=== PATIENT | female | born 1985 | race Caucasian/White ===

== ENCOUNTER 2018-04-23 17:36 | Emergency (ER) | payer OTHER ==
[~2018-04-23] VITALS: Ht 154.9 cm; Wt 60.4 kg
[2018-04-23 18:12] VITALS: BP 121/89
--- NOTE | 2018-04-23 18:22 | NUR ---
back out to [facility] after urine sample provided
--- NOTE | 2018-04-23 19:30 | NUR ---
PT CAME IN TO ER WITH C/O WANTING TO COMFIRM POSITIVE . PT TOOK SOME TESTS AND STATED THEY CAME OUT POSITIVE. PT HAD SOME N/V AND HAS AV FEELING SYMPTOMS OF PER PT. DENIES ANY PAIN. SKIN IS PINK/WARM/DRY; AAOX4 WITH EVEN AND STEADY GAIT; PATIENT STATES PAIN OF 0/10 AT THIS TIME; VSS; PATIENT POSITIONED FOR COMFORT; HOB ELEVATED; BEDRAILS UP X2; BED DOWN. ER MD MADE AWARE OF PT STATUS.
--- NOTE | 2018-04-23 20:01 | NUR ---
PT IS REQUESTING TO LEAVE DUE TO BEING HUNGRY AND WANTING TO GET FOOD OUTSIDE THE HOSPTIAL. SHE NO LONGER WANTS TO STAY TO GET TEST RESULTS. NOTIFIED.
--- NOTE | 2018-04-23 20:13 | NUR ---
Patient does not wish to proceed with medical care recommended by Jose Armando FLANAGAN. Patient given information related to possible complications, up to and including , which could occur as a result of leaving hospital at this time. Patient verbalizes understanding of risks involved leaving against medical advice. Patient has signed AMA form.
[2018-04-23 20:24] LABS: APPEARANCE,URINE CLOUDY (CLEAR); BILIRUBIN,URINE NEGATIVE (NEGATIVE); BLOOD, URINE NEGATIVE (NEGATIVE); COLOR,URINE YELLOW (YELLOW); LEUKOCYTE ESTERASE ,URINE 3+ (NEGATIVE); NITRITE, URINE NEGATIVE (NEGATIVE); PH,URINE 6.5 (5.0-9.0); UGLUCOSE NEGATIVE (NEGATIVE)
[2018-04-23 20:43] VITALS: BP 121/89
[2018-04-23 22:01] LABS: RBC,URINE 0-5 (RARE) /HPF (0-5); WBC,URINE 20-60 /HPF (0-5)
== END 2018-04-23 20:13 | disposition left against medical advice (07) ==
LOC: MED 17:36
DX: R11.10 Vomiting, unspecified (principal); R10.9 Unspecified abdominal pain; Z32.02 Encounter for pregnancy test, result negative
CPT/HCPCS: 81001; 81025; 87086; 99284